=== PATIENT | female | born 1995 | race Caucasian/White ===

== ENCOUNTER 2017-03-06 21:05 | Emergency (ER) | payer BC ==
[2017-03-06 21:12] VITALS: BP 127/69; PULSE 89; TEMP 99.5; BMI 31.1
--- NOTE | 2017-03-06 21:39 | PDOC ---
History of Present Illness - General History Source: Patient Exam Limitations: No Limitations - History of Present Illness Initial Comments: 03/06/17 21:40 The patient is a 22 year old female with no significant past medical history who presents to the ED complaining of approximately 10 days of nonproductive cough, sore throat, nasal congestion, and hoarse voice. No fever. No nausea, vomiting, or diarrhea. No wheezing or hemoptysis. No urinary complaints. Menstrual periods are irregular. <Shanta Alvarado - Last Filed: 03/06/17 21:40> - History of Present Illness Initial Comments: 03/07/17 01:39 Chief complaint: URI symptoms and cough History of present illness: Patient states that she has had symptoms of a cold for several weeks. However the cough became worse today. Review of systems: Denies fever/chills, chest pain, shortness of breath, abdominal pain, nausea, vomiting, diarrhea, visual or focal neurologic symptoms , unsteadiness of gait Past medical history: Healthy female except for mild asthma as a child which she seems to have outgrown. She is on no medications. Her periods however, or irregular and she is obese and her hirsuit, suggestive of possible endocrine abnormality Social/family history reviewed and noncontributory Physical exam: Alert oriented significantly obese but in no acute distress, with nasal congestion and a hoarse voice HEENT: Nasal congestion with watery nasal discharge. Ears and throat clear. Neck supple without bruit mass or nodes Lungs clear with full breath sounds bilaterally, no wheezes rales or rhonchi CV S1 and S2 normal without murmur rub or gallop pulses full and symmetric no JVD or edema Abdomen soft nontender without mass or organomegaly Extremities no CCE Skin clear, no rash, adequate turgor and wet mucous membranes Neurological intact Impression: Viral syndrome, URI, laryngitis. No sign of airway compromise. No sign of chest disease Plan: Because of the history of asthma, chest x-ray obtained. Further medical management depending on results. <Mario Hyatt - Last Filed: 03/07/17 01:43> - General Chief Complaint: Cold Symptoms Stated Complaint: COUGH Time Seen by Provider: 03/06/17 21:22 Past History <Shanta Alvarado - Last Filed: 03/06/17 21:40> - Past Medical History COPD: No - Immunization History Immunization Up to Date: Yes - Suicide/Smoking/Psychosocial Hx Smoking History: Unknown if ever smoked Have you smoked in the past 12 months: No Number of Cigarettes Smoked Daily: 0 Information on smoking cessation initiated: No Hx Alcohol Use: No Drug/Substance Use Hx: No Substance Use Type: None <Mario Hyatt - Last Filed: 03/07/17 01:43> - Past Medical History Allergies/Adverse Reactions: Allergies Allergy/AdvReac Type Severity Reaction Status Date / Time No Known Allergies Allergy Verified 09/13/15 15:26 Home Medications: Ambulatory Orders Promethazine/Phenyleph/Codeine [Phenergan VC+Codeine Syrup] 5 - 10 ml PO TID PRN #90 ml MDD 30 03/06/17 Review of Systems - Review of Systems Able to Perform ROS?: Yes Comments:: 03/06/17 21:41 GENERAL/CONSTITUTIONAL: No fever. No weakness. HEAD, EYES, EARS, NOSE AND THROAT: +Nasal congestion. +Sore throat, laryngitis. No change in vision. No ear pain or discharge. GASTROINTESTINAL: No nausea, vomiting, diarrhea or constipation. GENITOURINARY: No dysuria, frequency, or change in urination. CARDIOVASCULAR: No chest pain or shortness of breath. RESPIRATORY: +Nonproductive cough. No wheezing, or hemoptysis. MUSCULOSKELETAL: No joint or muscle swelling or pain. No neck or back pain. SKIN: No rash NEUROLOGIC: No headache, vertigo, loss of consciousness, or change in strength/ sensation. ENDOCRINE: No increased thirst. No abnormal weight change. HEMATOLOGIC/LYMPHATIC: No anemia, easy bleeding, or history of blood clots. ALLERGIC/IMMUNOLOGIC: No hives or skin allergy. <Shanta Alvarado - Last Filed: 03/06/17 21:40> *Physical Exam - Vital Signs Last Vital Signs Temp Pulse Resp BP Pulse Ox 99.5 F 89 14 127/69 99 03/06/17 21:10 03/06/17 21:10 03/06/17 21:10 03/06/17 21:10 03/06/17 21:10 - Physical Exam Comments: 03/06/17 21:42 GENERAL: Awake, alert, and fully oriented, in no acute distress. Moderately obese. HEAD: No signs of trauma EYES: PERRLA, EOMI, sclera anicteric, conjunctiva clear ENT: Auricles normal inspection, hearing grossly normal, nares patent, oropharynx clear without exudates. Moist mucosa. Hoarse voice with no stridor or other upper respiratory sign of obstruction. NECK: Normal ROM, supple, no lymphadenopathy, JVD, or masses LUNGS: Breath sounds equal, clear to auscultation bilaterally. No wheezes, and no crackles. Full breath sounds throughout b/l. HEART: Regular rate and rhythm, normal S1 and S2, no murmurs, rubs or gallops ABDOMEN: Soft, nontender, normoactive bowel sounds. No guarding, no rebound. No masses EXTREMITIES: Normal range of motion, no edema. No clubbing or cyanosis. No cords, erythema, or tenderness. NEUROLOGICAL: Normal speech, cranial nerves intact. Normal speech, normal gait. SKIN: Warm, Dry, normal turgor, no rashes or lesions noted. <Shanta Alvarado - Last Filed: 03/06/17 21:40> - Vital Signs Last Vital Signs Temp Pulse Resp BP Pulse Ox 99.5 F 89 14 127/69 99 03/06/17 21:10 03/06/17 21:10 03/06/17 21:10 03/06/17 21:10 03/06/17 21:10 <Mario Hyatt - Last Filed: 03/07/17 01:43> Medical Decision Making - Medical Decision Making 03/07/17 01:37 Chest x-ray clear. Respiratory rate 18 and unlabored. O2 saturation 99%. Patient has significant URI symptoms including nasal congestion, hoarseness suggestive of laryngitis, without symptoms of airway obstruction, nonproductive cough, but clear lungs to auscultation and negative chest x-ray Probable viral syndrome due to multiple systems involved. Symptomatic treatment and close follow-up as directed and discussed with mother. Child fully ambulatory and in no significant distress respiratory or otherwise upon discharge with her mother to follow-up as directed <Mario Hyatt - Last Filed: 03/07/17 01:43> *DC/Admit/Observation/Transfer - Attestations Scribe Attestion: 03/06/17 21:42 Documentation prepared by Shanta Alvarado, acting as director medical economics for Mario Hyatt MD. <Shanta Alvarado - Last Filed: 03/06/17 21:40> - Discharge Dispostion Admit: No <Mario Hyatt - Last Filed: 03/07/17 01:43> Diagnosis at time of Disposition: Viral URI with cough - Discharge Dispostion Disposition: HOME Condition at time of disposition: Stable - Prescriptions Prescriptions: Promethazine/Phenyleph/Codeine [Phenergan VC+Codeine Syrup] 5 - 10 ml PO TID PRN #90 ml MDD 30 PRN Reason: congestion, cough - Patient Instructions Printed Discharge Instructions: DI for Viral Upper Respiratory Infection -- Adult - Post Discharge Activity Forms/Work/School Notes: Back to School
== END 2017-03-07 00:12 | disposition home or self-care (01) ==
LOC: FER 21:05
DX: J06.9 Acute upper respiratory infection, unspecified (principal); B97.89 Other viral agents as the cause of diseases classified elsewhere; R05 Cough
CPT/HCPCS: 71010-TC; 84703; 87070; 87077; 87430; 99282-25

== ENCOUNTER 2018-01-09 20:24 | Emergency (ER) | payer BC ==
[2018-01-09 20:36] VITALS: BP 130/80; PULSE 84; TEMP 99.2; BMI 33.8
[2018-01-09 20:49] LABS: HCG,QUALITATIVE URINE Negative
[2018-01-09 20:52] LABS: URINE APPEARANCE Clear; URINE BILIRUBIN Negative (NEGATIVE); URINE COLOR Yellow; URINE GLUCOSE (UA) Negative (NEGATIVE); URINE KETONE Negative (NEGATIVE); URINE LEUK ESTERASE 3+ (NEGATIVE); URINE NITRITE Positive (NEGATIVE); URINE PROTEIN 2+ (NEGATIVE); URINE UROBILINOGEN 0.2 (0.2-1.0)
[2018-01-09 20:57] LABS: EPI CELLS FEW /HPF; URINE BACTERIA MODERATE /hpf (NEGATIVE); URINE WBC >50 (0-5)
[2018-01-09] MEDS ORDERED: SODIUM CHLORIDE 1,000 ML IV ONE (20:59)
--- NOTE | 2018-01-09 21:00 | PDOC ---
History of Present Illness - General History Source: Patient Exam Limitations: No Limitations - History of Present Illness Initial Comments: 01/09/18 21:10 The patient is a 22 year old female with no significant past medical history who presents to the ER complaining of right lower quadrant pain, dysuria and frequency for the past week. Patient describes her right lower quadrant pain as sharp, 6/10 in severity with associated nausea. Patient believed she had a UTI and self-treated with Monistat with minimal relief prompting her to come to the ER for further evaluation. Patient denies any vaginal discharge or malodor over the past week. Patient notes that she is sexually active with one partner and does not use protection. Patient has no history of STDs. Patients last menstrual period was in November. The patient denies chest pain, shortness of breath, headache, and dizziness. Denies fever, chills, vomit, diarrhea, and constipation. Denies urgency and hematuria. Allergies: NKA Past surgical history: None reported. Social history: No reported alcohol, drug, or cigarette use. PCP: Dr. Hughes ADULT COMPREHENSIVE ROS CONSTITUTIONAL: Absent: fever, chills, diaphoresis, generalized weakness, malaise, loss of appetite HEENT: Absent: rhinorrhea, nasal congestion, throat pain, throat swelling, difficulty swallowing, mouth swelling, ear pain, eye pain, visual Changes CARDIOVASCULAR: Absent: chest pain, syncope, palpitations, irregular heart rate, lightheadedness , peripheral edema RESPIRATORY: Absent: cough, shortness of breath, dyspnea with exertion, orthopnea, wheezing, stridor, hemoptysis GASTROINTESTINAL: Absent: abdominal distension, vomiting, diarrhea, constipation, melena, hematochezia Present: right lower quadrant pain. nausea. GENITOURINARY: Absent: urgency, hesitancy, hematuria, flank pain, genital pain Present: dysuria. frequency. MUSCULOSKELETAL: Absent: myalgia, arthralgia, joint swelling SKIN: Absent: rash, itching, pallor HEMATOLOGIC/IMMUNOLOGIC: Absent: easy bleeding, easy bruising, lymphadenopathy, frequent infections ENDOCRINE: Absent: unexplained weight gain, unexplained weight loss, heat intolerance, cold intolerance NEUROLOGIC: Absent: headache, focal weakness or paresthesias, dizziness, unsteady gait, seizure, mental status changes, bladder or bowel incontinence PSYCHIATRIC: Absent: anxiety, depression, suicidal or homicidal ideation, hallucinations. Adult Comprehensive PE GENERAL: Well developed, well nourished. Awake and alert. No acute distress. HEENT: Normocephalic, atraumatic. PERRLA, EOMI. No conjunctival pallor. Sclera are non- icteric. Moist mucous membranes. Oropharynx is clear. NECK: Supple. Full ROM. No JVD. Carotid pulses 2+ and symmetric, without bruits. No thyromegaly. No lymphadenopathy. CARDIOVASCULAR: Regular rate and rhythm. No murmurs, rubs, or gallops. Distal pulses are 2+ and symmetric. PULMONARY: No evidence of respiratory distress. Lungs clear to auscultation bilaterally. No wheezing, rales or rhonchi. ABDOMINAL: Soft. Non-distended. No rebound or guarding. No organomegaly. Normoactive bowel sounds. (+) Mild tenderness to the right lower quadrant. (+) Mild tenderness to suprapubic and over bladder. (+) Mild right CVA tenderness. No flank tenderness. MUSCULOSKELETAL Normal range of motion at all joints. No bony deformities or tenderness. No CVA tenderness. EXTREMITIES: No cyanosis. No clubbing. No edema. No calf tenderness. SKIN: Warm and dry. Normal capillary refill. No rashes. No jaundice. NEUROLOGICAL: Alert, awake, appropriate. Cranial nerves 2-12 intact. No deficits to light touch and temperature in face, upper extremities and lower extremities. No motor deficits in the in face, upper extremities and lower extremities. Normoreflexic in the upper and lower extremities. Normal speech. Toes are down- going bilaterally. Gait is normal without ataxia. PSYCHIATRIC: Cooperative. Good eye contact. Appropriate mood and affect. <Noy Cordoba - Last Filed: 01/09/18 21:10> - General History Source: Patient Exam Limitations: No Limitations - History of Present Illness Initial Comments: 01/09/18 22:15 This is a 22-year-old female who comes in complaining of frequency dysuria and some suprapubic and back pain. Patient said she has had symptoms are progressive 1 week. Patient got some [id number] Monistat and took it for 3 days for a urinary tract infection. Patient symptoms are unchanged so she comes in for evaluation. Patient workup did show a white count of 15.7 and a urinalysis that had white cells red cells and bacteria consistent with a UTI. Patient is getting a CAT scan to rule out Pyelo. as her symptoms have been progressive 1 week. 01/10/18 00:22 Patient's CAT scan was negative for any acute pathology Patient does have a urinary tract infection for which she was given a gram of ceftriaxone and discharged home on Cipro <Lacey Schaffer I - Last Filed: 01/10/18 00:23> - General Chief Complaint: Pain Stated Complaint: RLQ PAIN Time Seen by Provider: 01/09/18 20:36 Past History <Noy Cordoba - Last Filed: 01/09/18 21:10> - Past Medical History COPD: No - Reproductive History Is Patient Now?: No - Immunization History Immunization Up to Date: Yes - Suicide/Smoking/Psychosocial Hx Smoking History: Never smoked Have you smoked in the past 12 months: No Number of Cigarettes Smoked Daily: 0 Hx Alcohol Use: No Drug/Substance Use Hx: No Substance Use Type: None <Lacey Schaffer I - Last Filed: 01/10/18 00:23> - Past Medical History Allergies/Adverse Reactions: Allergies Allergy/AdvReac Type Severity Reaction Status Date / Time No Known Allergies Allergy Verified 01/09/18 20:31 Home Medications: Ambulatory Orders Ciprofloxacin [Cipro -] 500 mg PO Q12H #14 tablet 01/09/18 Phenazopyridine HCl [Pyridium] 200 mg PO TID #6 tablet 01/09/18 *Physical Exam - Vital Signs Last Vital Signs Temp Pulse Resp BP Pulse Ox 99.2 F 84 16 130/80 100 01/09/18 20:30 01/09/18 20:30 01/09/18 20:30 01/09/18 20:30 01/09/18 20:30 <Noy Cordoba - Last Filed: 01/09/18 21:10> - Vital Signs Last Vital Signs Temp Pulse Resp BP Pulse Ox 99.2 F 84 16 130/80 100 01/09/18 20:30 01/09/18 20:30 01/09/18 20:30 01/09/18 20:30 01/09/18 20:30 <Lacey Schaffer I - Last Filed: 01/10/18 00:23> ED Treatment Course - ADDITIONAL ORDERS Additional order review: Laboratory Results 01/09/18 20:35 Urine Color Yellow Urine Appearance Clear Urine pH 7.0 Ur Specific [place] 1.020 Urine Protein 2+ H Urine Glucose (UA) Negative Urine Ketones Negative Urine Blood 2+ H Urine Nitrite Positive Urine Bilirubin Negative Urine Urobilinogen 0.2 Ur Leukocyte Esterase 3+ H Urine RBC 5-10 Urine WBC >50 Ur Epithelial Cells Few Urine Bacteria Moderate Urine HCG, Qual Negative <Noy Cordoba - Last Filed: 01/09/18 21:10> - LABORATORY CBC & Chemistry Diagram: 01/09/18 21:25 01/09/18 21:25 <Lacey Schaffer I - Last Filed: 01/10/18 00:23> *DC/Admit/Observation/Transfer - Attestations Scribe Attestion: 01/09/18 21:16 Documentation prepared by Noy Cordoba, acting as medical claims specialist for Lacey Schaffer MD. <Noy Cordoba - Last Filed: 01/09/18 21:10> - Discharge Dispostion Decision to Admit order: No <Lacey Schaffer I - Last Filed: 01/10/18 00:23> Diagnosis at time of Disposition: Urinary tract infection Qualifiers: Urinary tract infection type: acute cystitis Hematuria presence: with hematuria Qualified Code(s): N30.01 - Acute cystitis with hematuria - Discharge Dispostion Disposition: HOME Condition at time of disposition: Good - Prescriptions Prescriptions: Ciprofloxacin [Cipro -] 500 mg PO Q12H #14 tablet Phenazopyridine HCl [Pyridium] 200 mg PO TID #6 tablet - Referrals Referrals: Ant Hughes [Primary Care Provider] - - Patient Instructions Additional Instructions: the urinary tract infection take Cipro 1 tablet twice a day for 7 days. For the burning and discomfort take Pyridium one tablet 3 times a day for 2 days Return to the emergency department immediately with ANY new, persistent or worsening symptoms. Continue any medications as previously prescribed by your physician. You should follow up with your primary doctor as soon as possible regarding today's emergency department visit. . Please make sure your doctor reviews the results of your emergency evaluation. Thank you for coming to the Emergency Department today for your care. It was a pleasure to see you today. Please note that your evaluation is INCOMPLETE until you follow-up with your doctor. - Post Discharge Activity
[2018-01-09 21:39] LABS: HEMATOCRIT 47.4 % (32.4-45.2); RDW 12.1 % (11.6-15.6)
[2018-01-09 21:42] LABS: BASO % 0.9 % (0-2.0); EOS % 0.3 % (0-4.5); HEMOGLOBIN 15.7 GM/dl (10.7-15.3); LYMPH % 10.7 % (8-40); MCH 28.7 pg (25.7-33.7); MCHC 33.1 g/dl (32.0-36.0); MEAN CELL VOLUME 86.6 fl (80-96); MEAN PLT VOLUME 8.6 fl (7.5-11.1); MONO % 7.1 % (3.8-10.2); PLATELET COUNT 233 K/MM3 (134-434); RBC 5.47 M/mm3 (3.60-5.2); WHITE BLOOD COUNT 15.3 K/mm3 (4.0-10.8)
[2018-01-09 21:51] LABS: ALBUMIN 4.7 g/dl (3.5-5.0); ALK PHOS 65 U/L (32-92); ANION GAP 11 MMOL/L (8-16); BLOOD UREA NITROGEN 13 mg/dl (7-18); CALCIUM 9.7 mg/dl (8.4-10.2); CHLORIDE 100 mmol/L (98-107); CO2 23 mmol/L (22-28); CREATININE 0.8 mg/dl (0.6-1.3); GLUCOSE,RANDOM 90 mg/dl (74-106); POTASSIUM 4.4 mmol/L (3.5-5.1); SGOT/AST 38 U/L (10-42); SGPT/ALT 69 U/L (10-40); SODIUM 134 mmol/L (136-145); TOT PROT 7.9 g/dl (6.4-8.3)
[2018-01-09] MEDS ORDERED: KETOROLAC TROMETHAMINE 30 MG/1 ML VIAL IVPUSH ONE (22:10)
[2018-01-09] MEDS ORDERED: KETOROLAC TROMETHAMINE 30 MG/1 ML VIAL ONE (22:11)
[2018-01-09] MEDS ORDERED: cefTRIAXone SODIUM 1 GM VIAL ONE (23:44)
[2018-01-09] MEDS ORDERED: CEFTRIAXONE 1,000 MG in DEXTROSE 5%-WATER - 50 ML IVPB ONE (23:44)
[2018-01-09] MEDS ORDERED: PHENAZOPYRIDINE HCL 100 MG TABLET (FP) PO ONE (23:50)
[2018-01-09] MEDS ORDERED: PHENAZOPYRIDINE HCL 100 MG TABLET (FP) ONE (23:53)
== END 2018-01-10 | disposition home or self-care (01) ==
LOC: FER 20:24
PROC: 3E03329 Introduction of Other Anti-infective into Peripheral Vein, Percutaneous Approach (ICD-10-PCS; principal; 2018-01-09)
PROC: 3E0333Z Introduction of Anti-inflammatory into Peripheral Vein, Percutaneous Approach (ICD-10-PCS; 2018-01-09)
PROC: 3E0337Z Introduction of Electrolytic and Water Balance Substance into Peripheral Vein, Percutaneous Approach (ICD-10-PCS; 2018-01-09)
DX: N30.01 Acute cystitis with hematuria (principal)
CPT/HCPCS: 36415; 74177-TC; 80053; 81003; 81015; 84703; 85025; 87086; 87186; 99283-25; J7030

== ENCOUNTER 2021-11-08 21:55 | Emergency (ER) | payer BC | END 2021-11-08 23:29 | disposition home or self-care (01) | LOC: FER 21:55 | PROC: 0HQGXZZ Repair Left Hand Skin, External Approach (ICD-10-PCS; principal; 2021-11-08) | DX: S61.215A Laceration without foreign body of left ring finger without damage to nail, initial encounter (principal); W22.8XXA Striking against or struck by other objects, initial encounter | CPT/HCPCS: 99282-25 ==

== ENCOUNTER 2021-11-20 17:05 | Emergency (ER) | payer BC ==
[2021-11-20 17:24] VITALS: BP 117/74; PULSE 70; TEMP 98.5; BMI 35.6
== END 2021-11-20 17:35 | disposition home or self-care (01) ==
LOC: FER 17:05
DX: Z48.02 Encounter for removal of sutures (principal)
CPT/HCPCS: 99281-25